=== PATIENT | female | born 1980 | race Caucasian/White ===

== ENCOUNTER 2018-07-24 03:21 | Emergency (ER) | payer OTHER ==
[2018-07-24 04:16] LABS: URINE PH (Dip) POC 5.5 (5.0-8.5)
[2018-07-24 04:16] LABS: URINE BLOOD (Dip) POC Negative (NEGATIVE); URINE KETONES (Dip) POC Trace (NEGATIVE); URINE LEUKOCYTE EST (Dip) POC 3+ (NEGATIVE); URINE NITRITE (Dip) POC Positive (NEGATIVE); URINE TOTAL PROTEIN POC 2+ (NEGATIVE)
[2018-07-24] MEDS: KETOROLAC 60 MG INJ IM (04:40)
[2018-07-24] MEDS: HYDROCODONE/APAP (10/325) TAB PO (05:05)
[2018-07-24] MEDS: LEVOFLOXACIN 750 MG TABLET PO (05:12)
[2018-07-24] MEDS: BACLOFEN 10 MG TAB PO (05:12)
== END 2018-07-24 05:35 | disposition home or self-care (01) ==
LOC: E/R 03:21
DX: N39.0 Urinary tract infection, site not specified (principal)
CPT/HCPCS: 81003; 81025; 99283

== ENCOUNTER 2018-07-25 20:29 | Emergency (ER) | payer OTHER ==
[2018-07-25] MEDS: ONDANSETRON (ODT) 4 MG TAB ODT (21:59)
[2018-07-25] MEDS: morphine 4 MG/ML VIAL IM (21:59)
[2018-07-25] MEDS: LIDOCAINE 2% 20 ML UROJET SYRINGE MM (22:06)
== END 2018-07-26 00:56 | disposition home or self-care (01) ==
LOC: E/R 07-26 00:56
DX: R33.9 Retention of urine, unspecified (principal)
CPT/HCPCS: 51702; 87086; 96372; 99284-25

== ENCOUNTER 2018-07-27 15:01 | Inpatient (IN) | payer OTHER ==
[2018-07-27] MEDS ORDERED: ACETAMINOPHEN 325 MG TAB PO (17:00)
[2018-07-27] MEDS ORDERED: ONDANSETRON 4 MG INJ IV (17:00)
[2018-07-27] MEDS ORDERED: HYDROCODONE/APAP (5/325) TAB PO (17:00)
[2018-07-27] MEDS ORDERED: NACL 0.9% 3 ML SYG IV (17:00)
[2018-07-27] MEDS: SOD CHLORIDE 0.9% 1,000 ML IV ×2 (17:05→20:00)
[2018-07-27 17:07] LABS: ADD MAN DIFF? NO
[2018-07-27 17:09] LABS: BASOPHILS % 0.4 % (0.0-2.0); EOSINOPHILS % 0.4 % (0.0-7.0); HEMATOCRIT 35.3 % (37.0-47.0); HEMOGLOBIN 11.9 g/dl (12.0-16.0); LYMPHOCYTES # 1.3 10^3/ul (0.8-2.9); LYMPHOCYTES % 17.1 % (15.0-51.0); MEAN CORPUSCULAR HGB CONC 33.7 g/dl (32.0-37.0); MEAN CORPUSCULAR VOLUME 94.9 fl (82.0-101.0); MEAN PLATELET VOLUME 10.5 fl (7.4-10.4); MONOCYTE # 0.5 10^3/ul (0.3-0.9); MONOCYTES % 6.5 % (0.0-11.0); NEUTROPHIL # 5.6 10^3/ul (1.6-7.5); NEUTROPHILS % 75.2 % (39.0-77.0); PLATELET COUNT 170 10^3/UL (140-415); RED BLOOD COUNT 3.72 10^6/ul (4.20-5.40); RED CELL DISTRIBUTION WIDTH 11.7 % (11.5-14.5)
[2018-07-27 17:09] LABS: WHITE BLOOD COUNT 7.4 10^3/ul (4.8-10.8)
[2018-07-27 17:16] LABS: ADD UMIC YES; UR ASCORBIC ACID 40 mg/dL (NEGATIVE); UR BACTERIA FEW /HPF (NONE SEEN); UR BILIRUBIN (Dip) NEGATIVE (NEGATIVE); UR BLOOD (Dip) NEGATIVE (NEGATIVE); UR CLARITY CLOUDY (CLEAR); UR COLOR AMBER (YELLOW); UR GLUCOSE (Dip) NEGATIVE (NEGATIVE); UR KETONES (Dip) NEGATIVE (NEGATIVE); UR LEUKOCYTE ESTERASE (Dip) NEGATIVE Leu/ul (NEGATIVE); UR MUCUS FEW /HPF (NONE SEEN); UR NITRITE (Dip) POSITIVE (NEGATIVE); UR RBC 12 /HPF (0-5); UR SPECIFIC GRAVITY (Dip) 1.025 (1.003-1.030); UR TOTAL PROTEIN (Dip) NEGATIVE (NEGATIVE); UR UROBILINOGEN (Dip) 2+ mg/dL (NEGATIVE); UR WBC 7 /HPF (0-5)
[2018-07-27 17:29] LABS: INR 0.94; PROTIME 12.7 Sec (11.9-14.9)
[2018-07-27] MEDS: morphine 2 MG INJ IV ×2 (17:32→21:25)
[2018-07-27 17:34] LABS: ANION GAP 10 (5-13); BLOOD UREA NITROGEN 16 mg/dl (7-20); CALCIUM 9.7 mg/dl (8.4-10.2); CARBON DIOXIDE 25 mmol/L (21-31); CHLORIDE 104 mmol/L (97-110); CREATININE 0.92 mg/dl (0.44-1.00); Estimated GFR > 60 mL/min (>60); GLUCOSE 109 mg/dl (70-220); POTASSIUM 3.5 mmol/L (3.5-5.1); SODIUM 139 mmol/L (135-144)
[2018-07-27] MEDS: METOCLOPRAMIDE 10 MG INJ IV (18:13)
[2018-07-27] MEDS: PROCHLORPERAZINE 10 MG INJ IV (18:36)
[2018-07-27] MEDS ORDERED: CARBAMAZEPINE 200 MG TAB PO (21:00)
[2018-07-27] MEDS ORDERED: BACLOFEN 10 MG TAB PO (21:00)
[2018-07-27] MEDS: CEFEPIME 1GM/50 ML (PMX) 50 ML IVPB (21:25)
[2018-07-27] MEDS: TAMSULOSIN (SR) 0.4 MG CAP PO (21:26)
[2018-07-27] MEDS: HEPARIN 5,000 UNIT/1 ML VIAL SC (21:36)
[2018-07-27] MEDS: BACLOFEN 10 MG TAB PO (22:40)
[2018-07-27] MEDS: PHENAZOPYRIDINE 100 MG TAB PO (22:41)
[2018-07-27] MEDS: CARBAMAZEPINE 200 MG TAB PO (22:41)
[2018-07-27] MEDS: HYDROmorphONE 0.5 MG/0.5 ML SYG IV (23:19)
[2018-07-28] MEDS: PROCHLORPERAZINE 10 MG INJ IV ×3 (00:44→17:57)
[2018-07-28 05:32] LABS: ADD MAN DIFF? NO
[2018-07-28 05:57] LABS: BASOPHILS % 0.5 % (0.0-2.0); EOSINOPHILS # 0.2 10^3/ul (0.0-0.5); HEMATOCRIT 33.2 % (37.0-47.0); HEMOGLOBIN 10.9 g/dl (12.0-16.0); LYMPHOCYTES # 2.1 10^3/ul (0.8-2.9); LYMPHOCYTES % 34.1 % (15.0-51.0); MEAN CORPUSCULAR HEMOGLOBIN 31.7 pg (29.0-33.0); MEAN CORPUSCULAR HGB CONC 32.8 g/dl (32.0-37.0); MEAN CORPUSCULAR VOLUME 96.5 fl (82.0-101.0); MEAN PLATELET VOLUME 11.2 fl (7.4-10.4); MONOCYTE # 0.5 10^3/ul (0.3-0.9); MONOCYTES % 7.5 % (0.0-11.0); NEUTROPHIL # 3.4 10^3/ul (1.6-7.5); NEUTROPHILS % 54.6 % (39.0-77.0); RED BLOOD COUNT 3.44 10^6/ul (4.20-5.40); RED CELL DISTRIBUTION WIDTH 11.9 % (11.5-14.5)
[2018-07-28 05:57] LABS: WHITE BLOOD COUNT 6.2 10^3/ul (4.8-10.8)
[2018-07-28] MEDS: HEPARIN 5,000 UNIT/1 ML VIAL SC ×3 (06:00→21:23)
[2018-07-28 06:01] LABS: PLATELET COUNT 134 10^3/UL (140-415); POSITIVE DIFF @See below
[2018-07-28 06:13] LABS: ALANINE AMINOTRANSFERASE 20 IU/L (13-69); ALBUMIN 3.4 g/dl (3.3-4.9); ALBUMIN/GLOBULIN RATIO 1.36; ALKALINE PHOSPHATASE 39 IU/L (42-121); ANION GAP 5 (5-13); ASPARTATE AMINO TRANSFERASE 14 IU/L (15-46); BILIRUBIN,INDIRECT 0.8 mg/dl (0-1.1); BILIRUBIN,TOTAL 0.8 mg/dl (0.2-1.3); BLOOD UREA NITROGEN 12 mg/dl (7-20); CARBON DIOXIDE 26 mmol/L (21-31); CHLORIDE 109 mmol/L (97-110); CREATININE 0.68 mg/dl (0.44-1.00); Estimated GFR > 60 mL/min (>60); GLUCOSE 100 mg/dl (70-220); POTASSIUM 4.2 mmol/L (3.5-5.1); SODIUM 140 mmol/L (135-144); TOTAL PROTEIN 5.9 g/dl (6.1-8.1)
[2018-07-28] MEDS: PHENAZOPYRIDINE 100 MG TAB PO ×3 (09:05→21:11)
[2018-07-28] MEDS: CARBAMAZEPINE 200 MG TAB PO ×3 (09:05→21:11)
[2018-07-28] MEDS: CEFEPIME 1GM/50 ML (PMX) 50 ML IVPB ×2 (09:05→21:11)
[2018-07-28] MEDS: BACLOFEN 10 MG TAB PO ×3 (09:05→21:11)
[2018-07-28] MEDS: HYDROmorphONE 0.5 MG/0.5 ML SYG IV ×3 (09:57→21:17)
[2018-07-28] MEDS: SOD CHLORIDE 0.9% 1,000 ML IV ×2 (14:00→17:28)
[2018-07-28] MEDS: PANTOPRAZOLE (EC) 40 MG TAB PO (14:10)
[2018-07-28] MEDS: TAMSULOSIN (SR) 0.4 MG CAP PO (21:11)
[2018-07-28] MEDS: DIPHENHYDRAMINE 50 MG INJ IV (22:39)
[2018-07-29] MEDS: PROCHLORPERAZINE 10 MG INJ IV (02:27)
[2018-07-29] MEDS: HYDROmorphONE 0.5 MG/0.5 ML SYG IV ×4 (02:27→20:08)
[2018-07-29] MEDS: LORAZEPAM 2 MG INJ IV ×3 (03:23→20:40)
[2018-07-29 05:13] LABS: WHITE BLOOD COUNT 4.1 10^3/ul (4.8-10.8)
[2018-07-29 05:13] LABS: ADD MAN DIFF? NO; BASOPHILS % 0.5 % (0.0-2.0); EOSINOPHILS # 0.1 10^3/ul (0.0-0.5); EOSINOPHILS % 3.4 % (0.0-7.0); HEMATOCRIT 31.2 % (37.0-47.0); HEMOGLOBIN 10.3 g/dl (12.0-16.0); LYMPHOCYTES # 1.3 10^3/ul (0.8-2.9); LYMPHOCYTES % 30.9 % (15.0-51.0); MEAN CORPUSCULAR HEMOGLOBIN 31.9 pg (29.0-33.0); MEAN CORPUSCULAR VOLUME 96.6 fl (82.0-101.0); MEAN PLATELET VOLUME 11.1 fl (7.4-10.4); MONOCYTE # 0.3 10^3/ul (0.3-0.9); MONOCYTES % 8.3 % (0.0-11.0); NEUTROPHIL # 2.3 10^3/ul (1.6-7.5); NEUTROPHILS % 56.7 % (39.0-77.0); PLATELET COUNT 119 10^3/UL (140-415); RED BLOOD COUNT 3.23 10^6/ul (4.20-5.40); RED CELL DISTRIBUTION WIDTH 11.6 % (11.5-14.5)
[2018-07-29 05:35] LABS: ANION GAP 4 (5-13); BLOOD UREA NITROGEN 10 mg/dl (7-20); CALCIUM 8.5 mg/dl (8.4-10.2); CARBON DIOXIDE 25 mmol/L (21-31); CHLORIDE 112 mmol/L (97-110); CREATININE 0.66 mg/dl (0.44-1.00); Estimated GFR > 60 mL/min (>60); GLUCOSE 88 mg/dl (70-220); MAGNESIUM 1.7 mg/dl (1.7-2.5); PHOSPHORUS 2.8 mg/dl (2.5-4.9); POTASSIUM 3.6 mmol/L (3.5-5.1); SODIUM 141 mmol/L (135-144)
[2018-07-29] MEDS: PANTOPRAZOLE (EC) 40 MG TAB PO ×2 (06:00→06:43)
[2018-07-29] MEDS: OXYCODONE/ACETAMINOPHEN (5/325) TAB PO (09:57)
[2018-07-29] MEDS: CEFEPIME 1GM/50 ML (PMX) 50 ML IVPB ×2 (09:57→20:30)
[2018-07-29] MEDS: PHENAZOPYRIDINE 100 MG TAB PO ×3 (09:57→20:31)
[2018-07-29] MEDS: CARBAMAZEPINE 200 MG TAB PO ×3 (09:57→20:31)
[2018-07-29] MEDS: BACLOFEN 10 MG TAB PO ×2 (12:56→20:31)
[2018-07-29] MEDS: morphine 4 MG/ML VIAL IV (13:03)
[2018-07-29] MEDS ORDERED: LORAZEPAM 2 MG INJ IV (15:00)
[2018-07-29] MEDS ORDERED: MIDAZOLAM 1 MG/ML 2 ML INJ (16:22)
[2018-07-29] MEDS ORDERED: PROPOFOL 20 ML (16:28)
[2018-07-29] MEDS ORDERED: LIDOCAINE 2% (SDV) 5 ML INJ (16:28)
[2018-07-29] MEDS: BUPIVACAINE 0.25%/EPI (SDV) 30 ML INJ (17:01)
[2018-07-29] MEDS ORDERED: CEFAZOLIN 1 GM INJ (18:06)
[2018-07-29] MEDS ORDERED: ONDANSETRON 4 MG INJ (18:07)
[2018-07-29] MEDS ORDERED: LABETALOL HCL 20MG INJ IV (18:30)
[2018-07-29] MEDS ORDERED: OXYCODONE/ACETAMINOPHEN (5/325) TAB PO (18:30)
[2018-07-29] MEDS ORDERED: LORAZEPAM 0.5 MG TAB PO (18:30)
[2018-07-29] MEDS ORDERED: HYDROmorphONE 1 MG/5 ML IV SYRINGE IV (18:30)
[2018-07-29] MEDS ORDERED: ONDANSETRON 4 MG INJ IV (18:30)
[2018-07-29] MEDS ORDERED: MIDAZOLAM 1 MG/ML 2 ML INJ IV (18:30)
[2018-07-29] MEDS ORDERED: METOCLOPRAMIDE 10 MG INJ IV (18:30)
[2018-07-29] MEDS: FENTAnyl 50 MCG/ML VIAL IV (18:33)
[2018-07-29] MEDS: HYDROmorphONE 1 MG/5 ML IV SYRINGE IV (18:35)
[2018-07-29] MEDS: MEPERIDINE 25 MG INJ IV (18:50)
[2018-07-29] MEDS: DIPHENHYDRAMINE 50 MG INJ IV (19:11)
[2018-07-29] MEDS: SOD CHLORIDE 0.9% 1,000 ML IV (20:30)
[2018-07-29] MEDS: TAMSULOSIN (SR) 0.4 MG CAP PO (20:31)
[2018-07-29] MEDS: DOCUSATE SODIUM 100 MG CAP PO (20:31)
[2018-07-30] MEDS: PROCHLORPERAZINE 10 MG INJ IV ×2 (00:53→07:43)
[2018-07-30] MEDS: OXYCODONE/ACETAMINOPHEN (5/325) TAB PO ×2 (00:54→08:07)
[2018-07-30] MEDS: HYDROmorphONE 0.5 MG/0.5 ML SYG IV ×4 (01:49→22:58)
[2018-07-30 03:48] LABS: AMPHETAMINE/METHAMPHETAMINE Negative (NEGATIVE); BARBITURATES Negative (NEGATIVE); BENZODIAZEPINES Positive (NEGATIVE); CANNABINOIDS Positive (NEGATIVE); COCAINE Negative (NEGATIVE); OPIATES Positive (NEGATIVE)
[2018-07-30] MEDS: SOD CHLORIDE 0.9% 1,000 ML IV (06:00)
[2018-07-30] MEDS: PANTOPRAZOLE (EC) 40 MG TAB PO (06:06)
[2018-07-30] MEDS: PHENAZOPYRIDINE 100 MG TAB PO ×3 (08:06→22:57)
[2018-07-30] MEDS: CEFEPIME 1GM/50 ML (PMX) 50 ML IVPB (08:06)
[2018-07-30] MEDS: DOCUSATE SODIUM 100 MG CAP PO ×2 (08:07→22:56)
[2018-07-30] MEDS: BACLOFEN 10 MG TAB PO ×3 (08:08→22:57)
[2018-07-30] MEDS: CARBAMAZEPINE 200 MG TAB PO ×3 (08:08→22:56)
[2018-07-30] MEDS: SOD CHLORIDE 0.45% 1,000 ML IV ×2 (09:35→21:02)
[2018-07-30] MEDS ORDERED: LORAZEPAM 0.5 MG TAB PO (13:00)
[2018-07-30] MEDS: DULOXETINE 20 MG CAP DR PO (14:12)
[2018-07-30] MEDS: BUSPIRONE 5 MG TAB PO ×2 (14:12→22:56)
[2018-07-30] MEDS ORDERED: LORAZEPAM 2 MG INJ IV (14:30)
[2018-07-30] MEDS: LORAZEPAM 2 MG INJ IV ×2 (17:23→23:57)
[2018-07-30] MEDS: oxyCODONE 5 MG TAB PO (17:31)
[2018-07-30] MEDS: CEFTRIAXONE 1 GM/50 ML (PMX) 50 ML IVPB (22:55)
[2018-07-30] MEDS: TAMSULOSIN (SR) 0.4 MG CAP PO (22:56)
[2018-07-31] MEDS: PROCHLORPERAZINE 10 MG INJ IV ×4 (00:21→20:39)
[2018-07-31] MEDS: PANTOPRAZOLE (EC) 40 MG TAB PO ×2 (06:31→17:55)
[2018-07-31] MEDS: HYDROmorphONE 0.5 MG/0.5 ML SYG IV ×2 (08:26→20:38)
[2018-07-31 08:27] LABS: ADD MAN DIFF? NO
[2018-07-31 08:30] LABS: WHITE BLOOD COUNT 4.6 10^3/ul (4.8-10.8)
[2018-07-31 08:30] LABS: BASOPHILS % 0.7 % (0.0-2.0); EOSINOPHILS # 0.1 10^3/ul (0.0-0.5); EOSINOPHILS % 2.6 % (0.0-7.0); HEMATOCRIT 30.7 % (37.0-47.0); HEMOGLOBIN 10.5 g/dl (12.0-16.0); LYMPHOCYTES # 1.1 10^3/ul (0.8-2.9); MEAN CORPUSCULAR HEMOGLOBIN 31.9 pg (29.0-33.0); MEAN CORPUSCULAR HGB CONC 34.2 g/dl (32.0-37.0); MEAN CORPUSCULAR VOLUME 93.3 fl (82.0-101.0); MEAN PLATELET VOLUME 10.9 fl (7.4-10.4); MONOCYTE # 0.4 10^3/ul (0.3-0.9); MONOCYTES % 8.8 % (0.0-11.0); NEUTROPHIL # 2.9 10^3/ul (1.6-7.5); NEUTROPHILS % 62.7 % (39.0-77.0); PLATELET COUNT 141 10^3/UL (140-415); RED BLOOD COUNT 3.29 10^6/ul (4.20-5.40); RED CELL DISTRIBUTION WIDTH 11.3 % (11.5-14.5)
[2018-07-31 08:50] LABS: ANION GAP 10 (5-13); BLOOD UREA NITROGEN 8 mg/dl (7-20); CALCIUM 8.9 mg/dl (8.4-10.2); CARBON DIOXIDE 25 mmol/L (21-31); CHLORIDE 106 mmol/L (97-110); CREATININE 0.65 mg/dl (0.44-1.00); Estimated GFR > 60 mL/min (>60); GLUCOSE 84 mg/dl (70-220); MAGNESIUM 1.8 mg/dl (1.7-2.5); PHOSPHORUS 3.4 mg/dl (2.5-4.9); POTASSIUM 3.7 mmol/L (3.5-5.1); SODIUM 141 mmol/L (135-144)
[2018-07-31] MEDS: BUSPIRONE 5 MG TAB PO (09:16)
[2018-07-31] MEDS: PHENAZOPYRIDINE 100 MG TAB PO ×4 (09:16→21:18)
[2018-07-31] MEDS: DULOXETINE 20 MG CAP DR PO (09:16)
[2018-07-31] MEDS: oxyCODONE 5 MG TAB PO ×2 (09:16→17:56)
[2018-07-31] MEDS: DOCUSATE SODIUM 100 MG CAP PO ×2 (09:16→21:16)
[2018-07-31] MEDS: BACLOFEN 10 MG TAB PO ×4 (09:16→21:17)
[2018-07-31] MEDS: CARBAMAZEPINE 200 MG TAB PO ×3 (10:14→21:18)
[2018-07-31] MEDS ORDERED: PROCHLORPERAZINE 10 MG INJ IV (12:30)
[2018-07-31] MEDS: SOD CHLORIDE 0.9% 1,000 ML IV (12:42)
[2018-07-31] MEDS: SUCRALFATE (100 MG/ML) 10ML CUP PO ×3 (14:11→21:16)
[2018-07-31] MEDS: SCOPOLAMINE 1.5 MG PATCH TRANSDERM (15:41)
[2018-07-31 16:45] LABS: LIPASE 28 U/L (23-300)
[2018-07-31] MEDS: METOCLOPRAMIDE 10 MG INJ IV ×2 (17:55→23:47)
[2018-07-31] MEDS: TAMSULOSIN (SR) 0.4 MG CAP PO (21:17)
[2018-07-31] MEDS: LORAZEPAM 2 MG INJ IV (23:54)
[2018-08-01] MEDS: PROCHLORPERAZINE 10 MG INJ IV (04:23)
[2018-08-01] MEDS: oxyCODONE 5 MG TAB PO ×3 (04:30→14:31)
[2018-08-01] MEDS: METOCLOPRAMIDE 10 MG INJ IV ×3 (06:10→18:30)
[2018-08-01 06:11] LABS: ADD MAN DIFF? NO
[2018-08-01] MEDS: PANTOPRAZOLE (EC) 40 MG TAB PO ×2 (06:11→18:30)
[2018-08-01 06:18] LABS: BASOPHILS % 0.6 % (0.0-2.0); EOSINOPHILS # 0.2 10^3/ul (0.0-0.5); EOSINOPHILS % 3.1 % (0.0-7.0); HEMATOCRIT 29.7 % (37.0-47.0); HEMOGLOBIN 10.2 g/dl (12.0-16.0); LYMPHOCYTES # 1.4 10^3/ul (0.8-2.9); LYMPHOCYTES % 29.8 % (15.0-51.0); MEAN CORPUSCULAR HEMOGLOBIN 31.9 pg (29.0-33.0); MEAN CORPUSCULAR HGB CONC 34.3 g/dl (32.0-37.0); MEAN CORPUSCULAR VOLUME 92.8 fl (82.0-101.0); MEAN PLATELET VOLUME 10.9 fl (7.4-10.4); MONOCYTE # 0.4 10^3/ul (0.3-0.9); NEUTROPHIL # 2.7 10^3/ul (1.6-7.5); NEUTROPHILS % 57.3 % (39.0-77.0); PLATELET COUNT 147 10^3/UL (140-415); RED CELL DISTRIBUTION WIDTH 11.4 % (11.5-14.5)
[2018-08-01 06:18] LABS: WHITE BLOOD COUNT 4.8 10^3/ul (4.8-10.8)
[2018-08-01 06:51] LABS: CARBON DIOXIDE 25 mmol/L (21-31); CHLORIDE 105 mmol/L (97-110); POTASSIUM 3.7 mmol/L (3.5-5.1); SODIUM 141 mmol/L (135-144)
[2018-08-01 06:52] LABS: ANION GAP 11 (5-13); BLOOD UREA NITROGEN 10 mg/dl (7-20); CALCIUM 8.8 mg/dl (8.4-10.2); Estimated GFR > 60 mL/min (>60); GLUCOSE 89 mg/dl (70-220); MAGNESIUM 1.7 mg/dl (1.7-2.5); PHOSPHORUS 3.5 mg/dl (2.5-4.9)
[2018-08-01] MEDS: SOD CHLORIDE 0.9% 1,000 ML IV (08:52)
[2018-08-01] MEDS: BACLOFEN 10 MG TAB PO ×3 (08:53→20:27)
[2018-08-01] MEDS: PHENAZOPYRIDINE 100 MG TAB PO ×3 (08:53→20:27)
[2018-08-01] MEDS: SUCRALFATE (100 MG/ML) 10ML CUP PO ×4 (08:53→20:27)
[2018-08-01] MEDS: CARBAMAZEPINE 200 MG TAB PO ×3 (08:53→20:27)
[2018-08-01] MEDS: DOCUSATE SODIUM 100 MG CAP PO ×2 (08:53→20:27)
[2018-08-01] MEDS: LORAZEPAM 2 MG INJ IV (12:23)
[2018-08-01] MEDS: HYDROmorphONE 0.5 MG/0.5 ML SYG IV ×2 (16:31→22:29)
[2018-08-01] MEDS: TAMSULOSIN (SR) 0.4 MG CAP PO (20:27)
[2018-08-02] MEDS: METOCLOPRAMIDE 10 MG INJ IV (00:01)
[2018-08-02] MEDS: LORAZEPAM 2 MG INJ IV ×2 (00:40→13:00)
[2018-08-02] MEDS: oxyCODONE 5 MG TAB PO ×3 (02:47→17:35)
[2018-08-02] MEDS: PROCHLORPERAZINE 10 MG INJ IV (02:48)
[2018-08-02] MEDS: SOD CHLORIDE 0.9% 1,000 ML IV (05:33)
[2018-08-02] MEDS: HYDROmorphONE 0.5 MG/0.5 ML SYG IV ×2 (05:37→22:01)
[2018-08-02] MEDS: PANTOPRAZOLE (EC) 40 MG TAB PO ×2 (05:42→17:35)
[2018-08-02 06:11] LABS: ADD MAN DIFF? NO
[2018-08-02 06:22] LABS: WHITE BLOOD COUNT 4.9 10^3/ul (4.8-10.8)
[2018-08-02 06:22] LABS: BASOPHIL # 0.1 10^3/ul (0.0-0.1); EOSINOPHILS # 0.1 10^3/ul (0.0-0.5); EOSINOPHILS % 2.9 % (0.0-7.0); HEMATOCRIT 28.2 % (37.0-47.0); HEMOGLOBIN 9.6 g/dl (12.0-16.0); LYMPHOCYTES # 1.8 10^3/ul (0.8-2.9); LYMPHOCYTES % 37.7 % (15.0-51.0); MONOCYTE # 0.5 10^3/ul (0.3-0.9); MONOCYTES % 9.6 % (0.0-11.0); NEUTROPHIL # 2.4 10^3/ul (1.6-7.5); NEUTROPHILS % 48.6 % (39.0-77.0); PLATELET COUNT 142 10^3/UL (140-415); RED CELL DISTRIBUTION WIDTH 11.5 % (11.5-14.5)
[2018-08-02 07:08] LABS: ANION GAP 11 (5-13); BLOOD UREA NITROGEN 12 mg/dl (7-20); CALCIUM 8.4 mg/dl (8.4-10.2); CARBON DIOXIDE 25 mmol/L (21-31); CHLORIDE 106 mmol/L (97-110); CREATININE 0.76 mg/dl (0.44-1.00); Estimated GFR > 60 mL/min (>60); GLUCOSE 87 mg/dl (70-220); MAGNESIUM 1.8 mg/dl (1.7-2.5); PHOSPHORUS 3.7 mg/dl (2.5-4.9); POTASSIUM 3.3 mmol/L (3.5-5.1); SODIUM 142 mmol/L (135-144)
[2018-08-02] MEDS: PHENAZOPYRIDINE 100 MG TAB PO ×3 (10:19→21:22)
[2018-08-02] MEDS: POTASSIUM CHLORIDE 20 MEQ POWDER FOR ORAL SOLN PO (10:19)
[2018-08-02] MEDS: SUCRALFATE (100 MG/ML) 10ML CUP PO ×4 (10:19→21:22)
[2018-08-02] MEDS: CARBAMAZEPINE 200 MG TAB PO ×3 (10:19→21:22)
[2018-08-02] MEDS: BACLOFEN 10 MG TAB PO ×3 (10:20→21:22)
[2018-08-02] MEDS: DOCUSATE SODIUM 100 MG CAP PO ×2 (10:20→21:22)
[2018-08-02] MEDS: DULOXETINE 20 MG CAP DR PO (12:59)
[2018-08-02] MEDS: TAMSULOSIN (SR) 0.4 MG CAP PO (21:22)
[2018-08-03] MEDS: oxyCODONE 5 MG TAB PO ×2 (00:27→05:46)
[2018-08-03] MEDS: LORAZEPAM 2 MG INJ IV (00:31)
[2018-08-03] MEDS: PROCHLORPERAZINE 10 MG INJ IV (05:40)
[2018-08-03] MEDS: PANTOPRAZOLE (EC) 40 MG TAB PO (05:40)
[2018-08-03 06:05] LABS: ADD MAN DIFF? NO
[2018-08-03 06:11] LABS: WHITE BLOOD COUNT 5.5 10^3/ul (4.8-10.8)
[2018-08-03 06:11] LABS: BASOPHILS % 0.5 % (0.0-2.0); EOSINOPHILS # 0.2 10^3/ul (0.0-0.5); EOSINOPHILS % 3.1 % (0.0-7.0); HEMATOCRIT 29.4 % (37.0-47.0); HEMOGLOBIN 9.9 g/dl (12.0-16.0); LYMPHOCYTES # 1.7 10^3/ul (0.8-2.9); MEAN CORPUSCULAR HGB CONC 33.7 g/dl (32.0-37.0); MEAN CORPUSCULAR VOLUME 95.1 fl (82.0-101.0); MEAN PLATELET VOLUME 10.8 fl (7.4-10.4); MONOCYTE # 0.5 10^3/ul (0.3-0.9); MONOCYTES % 9.9 % (0.0-11.0); NEUTROPHILS % 55.3 % (39.0-77.0); PLATELET COUNT 149 10^3/UL (140-415); RED BLOOD COUNT 3.09 10^6/ul (4.20-5.40); RED CELL DISTRIBUTION WIDTH 11.9 % (11.5-14.5)
[2018-08-03 06:26] LABS: ANION GAP 11 (5-13); BLOOD UREA NITROGEN 13 mg/dl (7-20); CALCIUM 8.9 mg/dl (8.4-10.2); CARBON DIOXIDE 25 mmol/L (21-31); CHLORIDE 105 mmol/L (97-110); CREATININE 0.64 mg/dl (0.44-1.00); Estimated GFR > 60 mL/min (>60); GLUCOSE 90 mg/dl (70-220); MAGNESIUM 1.8 mg/dl (1.7-2.5); PHOSPHORUS 4.4 mg/dl (2.5-4.9); POTASSIUM 4.1 mmol/L (3.5-5.1); SODIUM 141 mmol/L (135-144)
[2018-08-03] MEDS: SUCRALFATE (100 MG/ML) 10ML CUP PO ×2 (10:08→12:57)
[2018-08-03] MEDS: DOCUSATE SODIUM 100 MG CAP PO (10:08)
[2018-08-03] MEDS: DULOXETINE 20 MG CAP DR PO (10:09)
[2018-08-03] MEDS: BACLOFEN 10 MG TAB PO ×2 (10:09→12:57)
[2018-08-03] MEDS: PHENAZOPYRIDINE 100 MG TAB PO ×2 (10:09→12:57)
[2018-08-03] MEDS: CARBAMAZEPINE 200 MG TAB PO ×2 (10:10→12:57)
== END 2018-08-03 13:45 | disposition home or self-care (01) | DRG 663 ==
LOC: 5EC 07-30 20:10 → E/R 15:01 → TEL 07-31 14:06 → 2NE 16:59 → E/R 15:30 → 2NE 16:59
PROC: 0JQC0ZZ Repair Pelvic Region Subcutaneous Tissue and Fascia, Open Approach (ICD-10-PCS; principal; 2018-07-29 14:30)
DX: R33.8 Other retention of urine (principal); N39.0 Urinary tract infection, site not specified; F33.8 Other recurrent depressive disorders; N81.10 Cystocele, unspecified; G40.909 Epilepsy, unspecified, not intractable, without status epilepticus; D64.9 Anemia, unspecified; E86.0 Dehydration; R42 Dizziness and giddiness; H53.8 Other visual disturbances; R11.0 Nausea; R10.2 Pelvic and perineal pain; N32.89 Other specified disorders of bladder; K59.00 Constipation, unspecified; Z87.820 Personal history of traumatic brain injury; R11.2 Nausea with vomiting, unspecified; R00.2 Palpitations; K76.0 Fatty (change of) liver, not elsewhere classified; F12.90 Cannabis use, unspecified, uncomplicated; F43.10 Post-traumatic stress disorder, unspecified
CPT/HCPCS: 36415; 70551; 72197; 74183; 80048; 80053; 80307; 81001; 83690; 83735; 84100; 84703; 85025; 85610; 85730; 87086; 87338; 88305; 93005; 93306; 99285-25

== ENCOUNTER 2018-08-15 19:05 | Emergency (ER) | payer OTHER | END 2018-08-15 20:30 | disposition left against medical advice (07) | LOC: FTE 20:30 | DX: S39.92XA Unspecified injury of lower back, initial encounter (principal); V48.4XXA Person boarding or alighting a car injured in noncollision transport accident, initial encounter | CPT/HCPCS: 99284-25; Z7502 ==